=== PATIENT | female | born 1955 | race Caucasian/White ===

== ENCOUNTER 2016-09-11 20:17 | Observation (INO) | payer OTHER, BC ==
[~2016-09-11] VITALS: Ht 152.4 cm; Wt 110.7 kg
[~2016-09-11 20:17] MED LIST: ACID REDUCER 1150 MG PO; AMOXICILLIN250 MG PO; ARMOUR THYROID120 MG PO; ARMOUR THYROID60 M1 PO; ATENOLOL25 MG PO; BIOTENE1000 ML MM; BUSPAR30 MG PO; CEVIMELINE HCL30 MG PO; CHEWABLE-VITE1 EACH PO; CITRACAL + D M1 EACH PO; CLONIDINE; CO Q-10200 MG PO; CYANOCOBALAM1000 MCG PO; DHEA 2525 MG PO; DHEA25 M1 PO; DILAUDID; DILAUDID4 MG PO; DITROPAN XL10 MG PO; DULCOLAX5 MG PO; FLECTOR 1.3%1 PATC1 TD; FORTEO20 MICROGR SC; GEODON60 MG PO; GEODON80 MG PO; IRON325 M1 PO; LASIX20 MG PO; LIDODERM 5% P1 PATCH TD; LIOTHYRONINE SO5 MCG PO; LOPRESSOR25 MG PO; LOVENOX40 MG/0.4 SC; MAGNESIUM400 M1 PO; MIACALCIN4 ML NS; MIRALAX17 GM PO; MIRALAX255 GM PO; MONTELUKAST SOD10 MG PO; NEXIUM40 MG PO; NORTRIPTYLINE H10 MG PO; NORTRIPTYLINE H50 MG PO; PROBIOTIC1 EAC2 PO; PROGESTERONE100 MG PO; PROGESTERONE200 MG PO; PYRIDOXINE HCL50 MG PO; SENNA-DOCUSATE1 EAC1 PO; SKELAXIN800 MG PO; STOOL SOFTENER100 M1 PO; SUDAFED 12-HOU120 MG PO; SYMBICORT60 INHALA1 IH; TENORMIN25 MG PO; TORADOL30 MG/ML IV; TRILEPTAL600 MG PO; TYLENOL EXTRA500 MG PO; VENLAFAXINE HCL75 M3 PO; XOPENEX HF200 INHALA IH; ZANAFLEX4 M1 PO; ZOFRAN4 MG PO; ZOMIG5 MG PO; ZYRTEC10 M3 PO
[2016-09-11 21:16] LABS: HEMATOCRIT 35.9 % (36.0-46.0); MCH 31.6 PG (29.0-34.0); MCHC 33.1 G/DL (30.0-36.0); MCV 95.5 FL (83-99); MEAN PLAT.VOLUME 8.2 uM^3 (9.5-12.4); PLATELET COUNT 260 K/uL (156-360); RBC DIS.WIDTH-CV 12.6 % (11.8-14.6); RED BLOOD COUNT 3.76 M/uL (3.80-5.20)
[2016-09-11 21:25] LABS: CHLORIDE 98 mEq/L (99-109); POTASSIUM 4.2 mEq/L (3.7-5.4); SODIUM 133 mEq/L (136-147)
[2016-09-11 21:26] LABS: GLUCOSE 93 mg/dL (70-99)
[2016-09-11 21:29] LABS: ANION GAP 8 MEQ/L (2-14)
[2016-09-11 21:30] LABS: GFR ESTIMATE (CALCULATED) > 59 mL/min/
[2016-09-11 21:31] LABS: UREA NITROGEN (BUN) 16 mg/dL (9-23)
[2016-09-11 21:38] LABS: D-DIMER ELISA 0.77 mg/L FEU (< 0.57); TROP-I INTERPRETATION NEGATIVE; TROPONIN-I < 0.01 ng/mL (0.0-0.30)
[2016-09-12 01:44] VITALS: BP 184/77
[2016-09-12 02:01] VITALS: BP 152/74
[2016-09-12] MEDS ORDERED: OXCARBAZEPINE600 MG PO (02:42)
[2016-09-12] MEDS ORDERED: PROGESTERONE200 MG PO (02:51)
[2016-09-12] MEDS ORDERED: HYDROCORTISONE5 MG PO ×4 (02:56→03:00)
[2016-09-12] MEDS ORDERED: PRED FORTE100 DROP/5 BOTH EYES (03:02)
[2016-09-12] MEDS ORDERED: TRAZODONE HCL50 MG PO (03:03)
[2016-09-12] MEDS ORDERED: DICLOXACILLIN250 MG PO (03:05)
[2016-09-12] MEDS ORDERED: SYMBICORT60 INHALA1 IH (03:07)
[2016-09-12 03:58] LABS: TROP-I INTERPRETATION NEGATIVE; TROPONIN-I < 0.01 ng/mL (0.0-0.30)
[2016-09-12 04:21] LABS: HDL CHOLESTEROL 75 MG/DL (Desirable>=50); LDL CHOLESTEROL 84 mg/dL (Desirable<100); NON-HDL CHOLESTEROL 94 mg/dL (Desirable<160); TOTAL CHOLESTEROL 169 mg/dL (Desirable<200); TRIGLYCERIDES 48 MG/DL (Normal: <150)
[2016-09-12 08:37] VITALS: BP 133/64
[2016-09-12 10:20] LABS: TROP-I INTERPRETATION NEGATIVE; TROPONIN-I < 0.01 ng/mL (0.0-0.30)
[2016-09-12 11:44] VITALS: BP 125/85
== END 2016-09-12 15:26 | disposition home or self-care (01) ==
LOC: EME → EDBD 20:17 → EME 20:17 → EDOF 09-12 → 5WEST 09-12 01:19
PROVIDERS: Physician Assistant Medical
DX: R07.89 Other chest pain (principal); R94.31 Abnormal electrocardiogram [ECG] [EKG]; J45.909 Unspecified asthma, uncomplicated; M54.9 Dorsalgia, unspecified; F41.9 Anxiety disorder, unspecified; F32.9 Major depressive disorder, single episode, unspecified; G89.29 Other chronic pain; E66.01 Morbid (severe) obesity due to excess calories; Z68.38 Body mass index [BMI] 38.0-38.9, adult; D68.1 Hereditary factor XI deficiency; H18.51 Endothelial corneal dystrophy; Z96.653 Presence of artificial knee joint, bilateral; Z94.7 Corneal transplant status; Z98.84 Bariatric surgery status; Z82.49 Family history of ischemic heart disease and other diseases of the circulatory system; Z82.3 Family history of stroke; Z82.5 Family history of asthma and other chronic lower respiratory diseases; Z80.0 Family history of malignant neoplasm of digestive organs; Z87.891 Personal history of nicotine dependence; Z88.0 Allergy status to penicillin; Z88.5 Allergy status to narcotic agent; Z88.8 Allergy status to other drugs, medicaments and biological substances; Z91.09 Other allergy status, other than to drugs and biological substances; Z88.6 Allergy status to analgesic agent
CPT/HCPCS: 71020; 71275; 80048; 80061; 84484; 85027; 85379; 93005; 99202; G0378; J1650; J7030; Q0177

== ENCOUNTER 2017-08-20 15:11 | Emergency (ER) | payer OTHER, BC ==
[~2017-08-20] VITALS: Ht 152.4 cm; Wt 119.6 kg
[~2017-08-20 15:11] MED LIST changes: +DICLOXACILLIN250 MG PO; +HYDROCORTISONE5 MG PO; +OXCARBAZEPINE600 MG PO; +PRED FORTE100 DROP/5 BOTH EYES; +TRAZODONE HCL50 MG PO
[2017-08-20 15:52] LABS: BASOPHIL (%) 0.5 % (0-1); EOSINOPHIL (%) 6.1 % (0-5); EOSINOPHIL COUNT 0.5 K/uL (0-0.3); HEMATOCRIT 39.1 % (36.0-46.0); IMMATURE GRANULOCYTE (%) 0.5 % (0.0-0.7); LYMPHOCYTE (%) 18.9 % (15-42); LYMPHOCYTE COUNT 1.6 K/uL (1.0-2.8); MCH 31.3 PG (29.0-34.0); MCHC 33.2 G/DL (30.0-36.0); MONOCYTE (%) 8.4 % (3-12); MONOCYTE COUNT 0.7 K/uL (0-0.8); NEUTROPHIL (%) 65.6 % (45-76); NEUTROPHIL COUNT 5.7 K/uL (1.8-6.4); PLATELET COUNT 245 K/uL (156-360); RBC DIS.WIDTH-CV 11.7 % (11.8-14.6); RBC DIS.WIDTH-SD 40.5 % (39-53); RED BLOOD COUNT 4.16 M/uL (3.80-5.20); WHITE BLOOD COUNT 8.7 K/uL (4.1-10.2)
[2017-08-20 16:04] LABS: ALBUMIN 3.8 g/dL (3.2-4.8); CHLORIDE 99 mEq/L (99-109); POTASSIUM 4.1 mEq/L (3.7-5.4); SODIUM 135 mEq/L (136-147)
[2017-08-20 16:06] LABS: GLUCOSE 111 mg/dL (70-99)
[2017-08-20 16:07] LABS: TOTAL PROTEIN 6.5 g/dL (6.4-8.3)
[2017-08-20 16:08] LABS: TOTAL BILIRUBIN 0.3 mg/dL (0.0-1.0)
[2017-08-20 16:10] LABS: ALKALINE PHOSPHATASE 81 IU/L (3-129); CREATININE 0.7 mg/dL (0.6-1.3); GFR ESTIMATE (CALCULATED) > 59 mL/min/
[2017-08-20 16:11] LABS: UREA NITROGEN (BUN) 11 mg/dL (9-23)
[2017-08-20 16:12] LABS: AST (GOT) 20 IU/L (2-34)
[2017-08-20 16:13] LABS: ALT (GPT) 23 IU/L (3-49)
[2017-08-20 16:14] LABS: LIPASE 9 U/L (1.0-51.0)
[2017-08-20 16:19] LABS: TROP-I INTERPRETATION NEGATIVE; TROPONIN-I < 0.01 ng/mL (0.0-0.30)
[2017-08-20 17:38] LABS: APPEARANCE CLOUDY ((CLEAR)); BILIRUBIN NEGATIVE; BLOOD SMALL; COLOR YELLOW ((YELLOW)); GLUCOSE (STRIP) NEGATIVE; KETONES NEGATIVE; LEUKOCYTES TRACE; NITRITE NEGATIVE; PROTEIN (STRIP) 30; SPECIFIC GRAVITY 1.011 (1.000-1.030); UROBILINOGEN 0.2 MG/DL (0.2-1.0)
[2017-08-20 17:42] LABS: BACTERIA NONE SEEN /HPF; EPITHELIAL CELLS RARE /HPF; MUCUS TRACE /LPF; RED BLOOD CELLS 30-40 /HPF (0-5); WHITE BLOOD CELLS 40-50 /HPF (0-5)
[2017-08-20] MEDS ORDERED: CIPRO500 MG PO (18:01)
[2017-08-20 19:05] VITALS: BP 123/70
== END 2017-08-20 19:47 | disposition home or self-care (01) ==
LOC: EME 15:11
PROVIDERS: Physician Assistant Medical
DX: N39.0 Urinary tract infection, site not specified (principal); K43.9 Ventral hernia without obstruction or gangrene; K57.30 Diverticulosis of large intestine without perforation or abscess without bleeding; M79.7 Fibromyalgia; K21.9 Gastro-esophageal reflux disease without esophagitis; J45.909 Unspecified asthma, uncomplicated; F41.9 Anxiety disorder, unspecified; F32.9 Major depressive disorder, single episode, unspecified; F31.81 Bipolar II disorder; Z90.49 Acquired absence of other specified parts of digestive tract; Z87.442 Personal history of urinary calculi; Z96.653 Presence of artificial knee joint, bilateral; Z85.3 Personal history of malignant neoplasm of breast; Z94.7 Corneal transplant status; Z87.891 Personal history of nicotine dependence; Z88.5 Allergy status to narcotic agent; Z88.0 Allergy status to penicillin; Z88.6 Allergy status to analgesic agent
CPT/HCPCS: 74176; 80053; 81003; 83605; 83690; 84484; 85025; 87086; 99281; 99285; J0696; J2405; J3010

== ENCOUNTER 2017-09-23 18:55 | Observation (INO) | payer OTHER, BC ==
[~2017-09-23] VITALS: Ht 152.4 cm; Wt 118.8 kg
[~2017-09-23 18:55] MED LIST changes: +CIPRO500 MG PO; +GEODON40 MG PO; -GEODON80 MG PO
[2017-09-23 19:41] LABS: APPEARANCE SL.HAZY ((CLEAR)); BILIRUBIN NEGATIVE; BLOOD MODERATE; COLOR YELLOW ((YELLOW)); GLUCOSE (STRIP) NEGATIVE; KETONES NEGATIVE; LEUKOCYTES SMALL; NITRITE NEGATIVE; PROTEIN (STRIP) 30; SPECIFIC GRAVITY 1.013 (1.000-1.030); UROBILINOGEN 0.2 MG/DL (0.2-1.0)
[2017-09-23 19:53] LABS: BACTERIA NONE SEEN /HPF; EPITHELIAL CELLS RARE /HPF; MUCUS TRACE /LPF; RED BLOOD CELLS TNTC /HPF (0-5); UCUL ADDED? YES
[2017-09-23 21:42] LABS: HEMATOCRIT 36.5 % (36.0-46.0); HEMOGLOBIN 12.4 G/DL (11.9-15.5); MCV 94.3 FL (83-99); PLATELET COUNT 257 K/uL (156-360); RBC DIS.WIDTH-CV 11.8 % (11.8-14.6); RED BLOOD COUNT 3.87 M/uL (3.80-5.20); WHITE BLOOD COUNT 9.8 K/uL (4.1-10.2)
[2017-09-23 21:55] LABS: CHLORIDE 99 mEq/L (99-109); POTASSIUM 3.8 mEq/L (3.7-5.4); SODIUM 139 mEq/L (136-147)
[2017-09-23 21:57] LABS: GLUCOSE 93 mg/dL (70-99)
[2017-09-23 22:01] LABS: CREATININE 0.6 mg/dL (0.6-1.3); GFR ESTIMATE (CALCULATED) > 59 mL/min/
[2017-09-23 22:02] LABS: UREA NITROGEN (BUN) 14 mg/dL (9-23)
[2017-09-23 22:06] LABS: TROP-I INTERPRETATION NEGATIVE; TROPONIN-I < 0.01 ng/mL (0.0-0.30)
[2017-09-24] MEDS ORDERED: SANCTURA20 MG PO (03:12)
[2017-09-24] MEDS ORDERED: TYLENOL EXTRA500 MG PO (03:13)
[2017-09-24] MEDS ORDERED: DULERA 100 MCG/13 GM IH (03:25)
[2017-09-24] MEDS ORDERED: LO-DOSE ASPIRIN81 M2 PO (03:34)
[2017-09-24] MEDS ORDERED: AMOXICILLIN250 MG PO (03:34)
[2017-09-24] MEDS ORDERED: TIZANIDINE HCL4 M1 PO (03:35)
[2017-09-24] MEDS ORDERED: PROBIOTIC1 EAC1 PO (03:35)
[2017-09-24] MEDS ORDERED: BOTOX100 UNITS IJ (03:36)
[2017-09-24 06:19] LABS: ALBUMIN 3.8 G/DL (3.2-4.8); DIRECT BILIRUBIN 0.1 mg/dL (0.0-0.3); TOTAL BILIRUBIN 0.3 MG/DL (0.0-1.0)
[2017-09-24 06:24] LABS: ALKALINE PHOSPHATASE 78 IU/L (3-129); ALT (GPT) 19 IU/L (3-49); AST (GOT) 18 IU/L (2-34); TOTAL PROTEIN 6.7 G/DL (6.4-8.3)
[2017-09-24 07:24] VITALS: BP 164/79
[2017-09-24 09:45] VITALS: BP 145/70
[2017-09-24 13:53] VITALS: BP 126/61
[2017-09-24 16:00] VITALS: BP 134/63
[2017-09-24 23:46] VITALS: BP 126/60
[2017-09-25 06:43] VITALS: BP 126/76
[2017-09-25 06:51] LABS: BASOPHIL (%) 0.4 % (0-1); EOSINOPHIL (%) 4.4 % (0-5); EOSINOPHIL COUNT 0.3 K/uL (0-0.3); HEMATOCRIT 37.1 % (36.0-46.0); HEMOGLOBIN 11.7 G/DL (11.9-15.5); IMMATURE GRANULOCYTE (%) 0.3 % (0.0-0.7); LYMPHOCYTE (%) 36.2 % (15-42); LYMPHOCYTE COUNT 2.5 K/uL (1.0-2.8); MCH 30.7 PG (29.0-34.0); MCHC 31.5 G/DL (30.0-36.0); MCV 97.4 FL (83-99); MONOCYTE COUNT 0.8 K/uL (0-0.8); NEUTROPHIL (%) 47.7 % (45-76); NEUTROPHIL COUNT 3.3 K/uL (1.8-6.4); PLATELET COUNT 242 K/uL (156-360); RBC DIS.WIDTH-CV 11.9 % (11.8-14.6); RBC DIS.WIDTH-SD 43.2 % (39-53); RED BLOOD COUNT 3.81 M/uL (3.80-5.20)
[2017-09-25 07:11] LABS: CHLORIDE 100 MEQ/L (99-109); CREATININE 0.6 MG/DL (0.6-1.3); GFR ESTIMATE (CALCULATED) > 59 mL/min/; GLUCOSE 101 mg/dL (70-99); POTASSIUM 4.2 MEQ/L (3.7-5.4); SODIUM 140 MEQ/L (136-147); UREA NITROGEN (BUN) 17 mg/dL (9-23)
[2017-09-25] MEDS ORDERED: MIRALAX17 GM PO (11:32)
[2017-09-25] MEDS ORDERED: HYDROCHLOROTH12.5 M3 PO (11:33)
[2017-09-25 12:00] VITALS: BP 108/51
[2017-09-25] MEDS ORDERED: LEVOFLOXACIN750 MG PO (14:01)
[2017-09-25 15:35] VITALS: BP 146/67
== END 2017-09-25 16:19 | disposition home or self-care (01) ==
LOC: EME → EDBD 18:55 → EME 18:55 → EDOF 09-24 02:34 → ENRESERV 09-24 02:39 → CANRESERV 09-24 02:39 → ENRESERV 09-24 03:38 → 5EAST 09-24 04:41
PROVIDERS: Emergency Medicine; Hospitalist; Internal Medicine
DX: N39.0 Urinary tract infection, site not specified (principal); J18.9 Pneumonia, unspecified organism; M25.511 Pain in right shoulder; N20.0 Calculus of kidney; G89.29 Other chronic pain; M54.9 Dorsalgia, unspecified; F11.20 Opioid dependence, uncomplicated; M19.90 Unspecified osteoarthritis, unspecified site; G43.909 Migraine, unspecified, not intractable, without status migrainosus; H18.51 Endothelial corneal dystrophy; J45.909 Unspecified asthma, uncomplicated; E66.01 Morbid (severe) obesity due to excess calories; Z68.43 Body mass index [BMI] 50.0-59.9, adult; Z98.84 Bariatric surgery status; R26.89 Other abnormalities of gait and mobility; K21.9 Gastro-esophageal reflux disease without esophagitis; Z85.3 Personal history of malignant neoplasm of breast; F32.9 Major depressive disorder, single episode, unspecified; Z96.653 Presence of artificial knee joint, bilateral; Z90.49 Acquired absence of other specified parts of digestive tract; Z94.7 Corneal transplant status; Z87.891 Personal history of nicotine dependence; Z82.3 Family history of stroke; Z80.0 Family history of malignant neoplasm of digestive organs; Z82.5 Family history of asthma and other chronic lower respiratory diseases; Z88.5 Allergy status to narcotic agent; Z88.6 Allergy status to analgesic agent; Z88.8 Allergy status to other drugs, medicaments and biological substances
CPT/HCPCS: 71046; 71275; 73030; 76770; 80048; 80076; 81003; 83605; 83880; 84484; 85025; 85027; 85379; 87040; 87086; 87502; 94640 76; 94799; 99202; 99281; 99285; G0378; J1644; J1885; J1956; J2405; J7030

== ENCOUNTER 2017-10-06 09:16 | Day surgery (SDC) | payer OTHER, BC ==
[~2017-10-06] VITALS: Ht 152.4 cm; Wt 118.8 kg
[~2017-10-06 09:16] MED LIST changes: +BOTOX100 UNITS IJ; +DULERA 100 MCG/13 GM IH; +HYDROCHLOROTH12.5 M3 PO; +LEVOFLOXACIN750 MG PO; +LO-DOSE ASPIRIN81 M2 PO; +METHENAMINE HIPP1 GM PO; +PROBIOTIC1 EAC1 PO; +SANCTURA20 MG PO; +TIZANIDINE HCL4 M1 PO; +ZANTAC150 MG PO
[2017-10-06 09:53] VITALS: BP 137/63
[2017-10-06 14:50] VITALS: BP 141/71
[2017-10-06 15:30] VITALS: BP 135/61
== END 2017-10-06 15:55 | disposition home or self-care (01) ==
LOC: SDC 09:16
DX: N20.2 Calculus of kidney with calculus of ureter (principal); I10 Essential (primary) hypertension; K21.9 Gastro-esophageal reflux disease without esophagitis; J45.909 Unspecified asthma, uncomplicated; E03.9 Hypothyroidism, unspecified; M79.7 Fibromyalgia; Z87.440 Personal history of urinary (tract) infections; Z79.82 Long term (current) use of aspirin; Z87.891 Personal history of nicotine dependence
CPT/HCPCS: 87086; C2625; J0690; J2250; J3010

== ENCOUNTER 2017-10-28 11:44 | Day surgery (SDC) | payer OTHER, BC ==
[~2017-10-28] VITALS: Ht 152.4 cm; Wt 118.8 kg
[~2017-10-28 11:44] MED LIST changes: +BOTOX200 UNIT IJ; +CYTOMEL5 MCG PO; +LASIX40 MG PO; +THERA TEARS1 EAC1 BOTH EYES; +VENLAFAXINE HC150 MG PO; -VENLAFAXINE HCL75 M3 PO; +XANAX0.5 MG PO; +[UNRECOGNIZED DRUG - OTHER] DT
[2017-10-28 12:23] VITALS: BP 132/60
[2017-10-28 16:25] VITALS: BP 129/58
[2017-10-28 16:53] VITALS: BP 119/59
== END 2017-10-28 17:05 | disposition home or self-care (01) ==
LOC: SDC 11:44
PROVIDERS: Urology
DX: N20.2 Calculus of kidney with calculus of ureter (principal); I10 Essential (primary) hypertension; M79.7 Fibromyalgia; E03.9 Hypothyroidism, unspecified; K21.9 Gastro-esophageal reflux disease without esophagitis; F41.8 Other specified anxiety disorders; Z87.891 Personal history of nicotine dependence; Z79.82 Long term (current) use of aspirin
CPT/HCPCS: 74018; 76000; 82365 90; 93005; C1894; C2625; J0131; J0330; J0696; J1885; J2250

== ENCOUNTER → 2018-01-09 | Outpatient (CLI) | payer OTHER, BC ==
[~2018-01-09] VITALS: Ht 152.4 cm; Wt 120.2 kg
[~2018-01-09] MED LIST changes: +ATARAX,VISTARIL50 MG PO; +BUSPAR10 MG PO; +DYNAPEN 250 MG250 MG PO; +EVOXAC30 MG PO; +GEODON20 MG PO; +HYDROXYZINE HCL50 MG PO; +IRON160 M1 PO; +MUCINEX D ER T1 EACH PO; +PAPAYA ENZYME1 EACH PO; +SECURA PROTECTI78 GM TP; +SYNTHROID88 MCG PO; +XYZAL5 MG PO; +ZOLOFT50 MG PO; +[UNRECOGNIZED DRUG - CODE] IV
== END | disposition home or self-care (01) ==
LOC: AMB 14:00
PROC: 0DB68ZX Excision of Stomach, Via Natural or Artificial Opening Endoscopic, Diagnostic (ICD-10-PCS; principal; 2018-01-09)
DX: K29.60 Other gastritis without bleeding (principal); K44.9 Diaphragmatic hernia without obstruction or gangrene; K29.80 Duodenitis without bleeding; Z98.84 Bariatric surgery status
CPT/HCPCS: 88305; 88342 TC; J3010

== ENCOUNTER → 2018-03-22 | Outpatient (CLI) | payer OTHER, BC ==
[~2018-03-22] VITALS: Ht 152.4 cm; Wt 114.4 kg
[~2018-03-22] MED LIST changes: +DAILY VITE1 EAC1 PO; +HEARTBURN RELIE75 MG PO; +NEXIUM20 MG PO; +NITROSTAT0.4 MG SL; +[UNRECOGNIZED DRUG - OTHER] PO
== END | disposition home or self-care (01) ==
LOC: AMB 07:00
PROC: 0DJD8ZZ Inspection of Lower Intestinal Tract, Via Natural or Artificial Opening Endoscopic (ICD-10-PCS; principal; 2018-03-22)
DX: K57.30 Diverticulosis of large intestine without perforation or abscess without bleeding (principal); K64.8 Other hemorrhoids; K59.00 Constipation, unspecified; Z80.0 Family history of malignant neoplasm of digestive organs; Z83.71 Family history of colonic polyps; J45.909 Unspecified asthma, uncomplicated; I10 Essential (primary) hypertension; M79.7 Fibromyalgia; E03.9 Hypothyroidism, unspecified; K21.9 Gastro-esophageal reflux disease without esophagitis; R94.31 Abnormal electrocardiogram [ECG] [EKG]; Z79.82 Long term (current) use of aspirin; Z88.5 Allergy status to narcotic agent; Z88.8 Allergy status to other drugs, medicaments and biological substances; Z98.84 Bariatric surgery status; Z87.891 Personal history of nicotine dependence